=== PATIENT | female | born 1995 | race African-American/Black ===

== ENCOUNTER 2021-04-06 17:44 | Emergency (ER) | payer OTHER ==
[~2021-04-06] VITALS: Ht 172.7 cm; Wt 108.9 kg
[2021-04-06 17:48] VITALS: BP 149/99
[2021-04-06] MEDS ORDERED: ACETAMINOPHEN 325 MG TAB PO ONE (18:30)
== END 2021-04-06 22:36 | disposition left against medical advice (07) ==
LOC: ER 17:44
DX: U07.1 COVID-19 (principal); I10 Essential (primary) hypertension
CPT/HCPCS: 36415; 71045; 87426; 93005

== ENCOUNTER 2021-07-31 11:28 | Emergency (ER) | payer MEDICAID, OTHER ==
[~2021-07-31] VITALS: Ht 172.7 cm; Wt 108.9 kg
[2021-07-31 11:31] VITALS: BP 150/92
[2021-07-31] MEDS ORDERED: IBUP800T27 PO (13:14)
== END 2021-07-31 13:27 | disposition home or self-care (01) ==
LOC: ER 11:28
DX: S90.31XA Contusion of right foot, initial encounter (principal); I10 Essential (primary) hypertension; Z79.1 Long term (current) use of non-steroidal anti-inflammatories (NSAID); W18.39XA Other fall on same level, initial encounter; Y93.89 Activity, other specified; Y92.89 Other specified places as the place of occurrence of the external cause; Y99.8 Other external cause status
CPT/HCPCS: 73630

== ENCOUNTER 2021-12-08 11:09 | Emergency (ER) | payer MEDICAID, OTHER ==
[~2021-12-08] VITALS: Ht 175.3 cm; Wt 73.0 kg
[~2021-12-08 11:09] MED LIST: IBUP800T27 PO
[2021-12-08 15:49] VITALS: BP 135/83
[2021-12-08] MEDS ORDERED: KETOROLAC TROMETH 60MG/2ML VIAL IM ONE (16:15)
== END 2021-12-08 17:02 | disposition home or self-care (01) ==
LOC: ER 11:09
DX: M54.32 Sciatica, left side (principal); I10 Essential (primary) hypertension; Z79.1 Long term (current) use of non-steroidal anti-inflammatories (NSAID)
CPT/HCPCS: 93971; 96372; 99284; J1885

== ENCOUNTER 2022-02-23 07:32 | Emergency (ER) | payer MEDICAID, OTHER ==
[~2022-02-23] VITALS: Ht 172.7 cm; Wt 109.0 kg
[2022-02-23 07:38] VITALS: BP 156/104
[2022-02-23 08:44] LABS: Urine Bacteria FEW /hpf (None Seen); Urine Blood Negative /uL (Negative); Urine Specific Gravity 1.011 (1.001-1.035); Urine WBC 63 /hpf (0 - 5)
[2022-02-23] MEDS ORDERED: NITR-87 PO (08:50)
== END 2022-02-23 09:07 | disposition home or self-care (01) ==
LOC: ER 07:35
DX: N39.0 Urinary tract infection, site not specified (principal); R59.1 Generalized enlarged lymph nodes; I10 Essential (primary) hypertension; F12.10 Cannabis abuse, uncomplicated; Z32.02 Encounter for pregnancy test, result negative
CPT/HCPCS: 81001; 81025

== ENCOUNTER 2022-06-03 11:44 | Emergency (ER) | payer MEDICAID ==
[~2022-06-03] VITALS: Ht 172.7 cm; Wt 106.0 kg
[~2022-06-03 11:44] MED LIST changes: +NITR-87 PO
[2022-06-03 12:32] VITALS: BP 146/80
[2022-06-03 13:19] LABS: Urine Bacteria FEW /hpf (None Seen); Urine Blood Negative /uL (Negative); Urine Mucus FEW (None Seen); Urine Specific Gravity 1.023 (1.001-1.035); Urine WBC 14 /hpf (0 - 5)
[2022-06-03 13:29] LABS: Basophils # (auto) 0.1 10 ^3/uL (0-0.2); Basophils % (auto) 1.8 % (0.0-2.0); Eosinophils # (auto) 0.2 10 ^3/uL (0-0.8); Eosinophils % (auto) 3.1 % (0.0-7.0); Hematocrit 37.6 % (36.0-46.0); Hemoglobin 12.1 g/dL (12.2-16.2); Lymphocytes % (auto) 32.4 % (10.0-50.0); Mean Corpuscular Hemoglobin 27.1 pg (28.0-32.0); Mean Corpuscular Hgb Conc. 32.1 g/dL (32.0-36.0); Mean Corpuscular Volume 84.4 fL (80.0-100.0); Monocytes # (auto) 0.3 10 ^3/uL (0-1.3); Monocytes % (auto) 5.4 % (0.0-12.0); Neutrophils # (auto) 3.5 10 ^3/uL (1.6-8.6); Neutrophils % (auto) 57.3 % (37.0-80.0); Nucleated Red Blood Cells % 0.1 %; Red Blood Cells 4.45 10^6/uL (4.0-5.20); Red Cell Distribution Width 14.5 % (11.8-14.3); White Blood Cell 6.1 10^3/uL (4.4-10.8)
[2022-06-03 13:47] LABS: Albumin 3.4 g/dL (3.4-5.0); BUN/Creatinine Ratio 12.5; Calcium 8.5 mg/dL (8.5-10.1)
[2022-06-03 13:49] LABS: Bilirubin, Total 0.2 mg/dL (0.2-1.0); Total Protein 6.9 g/dL (6.4-8.2)
[2022-06-03 13:55] LABS: Magnesium 2.1 mg/dL (1.6-2.6)
[2022-06-03] MEDS ORDERED: DICL50TA2 PO (15:36)
[2022-06-03] MEDS ORDERED: TRAM50TA2 PO (15:36)
[2022-06-03] MEDS ORDERED: BACDST PO (15:36)
== END 2022-06-03 21:46 | disposition home or self-care (01) ==
LOC: ER 11:44
DX: R10.32 Left lower quadrant pain (principal); N39.0 Urinary tract infection, site not specified; I10 Essential (primary) hypertension; F17.210 Nicotine dependence, cigarettes, uncomplicated; Z79.1 Long term (current) use of non-steroidal anti-inflammatories (NSAID); Z79.899 Other long term (current) drug therapy
CPT/HCPCS: 36415; 80053; 81001; 83690; 83735; 84702; 85025